=== PATIENT | female | born 1935 | race Caucasian/White ===

== ENCOUNTER 2019-05-09 20:17 | Emergency (ER) | payer OTHER ==
[~2019-05-09] VITALS: Ht 157.5 cm; Wt 46.8 kg
[2019-05-09 20:52] LABS: BASOPHILS # (AUTO) 0.1 K/uL (0.0-8.0); BASOPHILS % (AUTO) 0.9 % (0.0-2.0); EOSINOPHILS # (AUTO) 0.1 K/uL (0.0-0.7); EOSINOPHILS % (AUTO) 1.3 % (0.0-7.0); HEMATOCRIT 26.9 % (31.2-41.9); HEMOGLOBIN 8.8 g/dL (10.9-14.3); LYMPHOCYTES # (AUTO) 2.5 K/uL (20.0-40.0); LYMPHOCYTES % (AUTO) 28.5 % (20.5-51.5); MEAN CORPUSCULAR HEMOGLOBIN 21.6 uug (24.7-32.8); MEAN CORPUSCULAR HGB CONC 33 g/dL (32.3-35.6); MEAN CORPUSCULAR VOLUME 66.3 fL (75.5-95.3); MONOCYTES # (AUTO) 0.4 K/uL (2.0-10.0); MONOCYTES % (AUTO) 4.5 % (0.0-11.0); NEUTROPHILS # (AUTO) 5.7 K/uL (1.8-8.9); NEUTROPHILS % (AUTO) 64.8 % (38.5-71.5); PLATELET COUNT (AUTO) 562 K/uL (179-408); RED BLOOD CELL COUNT(AUTO) 4.06 MIL/uL (3.63-4.92); WHITE BLOOD COUNT (AUTO) 8.8 K/uL (3.8-11.8)
[2019-05-09 21:00] LABS: CARBON DIOXIDE 31 mmol/L (21-32); CHLORIDE 99 mmol/L (98-107); POTASSIUM 4.5 mmol/L (3.5-5.1)
[2019-05-09 21:01] LABS: CREATININE 0.6 mg/dL (0.6-1.3); GLUCOSE 112 mg/dL (74-106); UREA NITROGEN, BLOOD 12 mg/dL (7-20)
[2019-05-09 21:02] LABS: ALKALINE PHOSPHATASE 101 U/L (50-136); ASPARTATE AMINOTRANSFERASE 9 U/L (15-37); BILIRUBIN,DIRECT 0.1 mg/dL (0.0-0.2); BILIRUBIN,TOTAL 0.2 mg/dL (0.1-1.0)
[2019-05-09 21:03] LABS: ALANINE AMINOTRANSFERASE 11 U/L (14-59); TOTAL PROTEIN, SERUM 7.2 g/dL (6.4-8.2)
--- NOTE | 2019-05-09 21:38 | NUR ---
CALLED [facility] PER [facility]. RIVERS REQUEST. SPOKE WITH MOIRA ([facility]), PENDING CALL BACK FROM .
[2019-05-09 21:42] LABS: EOSINOPHILS % (MANUAL) 2 % (0-8); LYMPHOCYTES % (MANUAL) 31 % (20-40); MONOCYTES % (MANUAL) 7 % (2-10); NEUTROPHILS % (MANUAL) 60 % (42-75)
--- NOTE | 2019-05-09 22:04 | NUR ---
DR. RIVERS SPEAKING TO DR. GROSSMAN ([facility]) ON PHONE.
--- NOTE | 2019-05-09 22:20 | NUR ---
SPOKE WITH [facility] WHO IS ARRANGING TRANSPORT FOR PT TO GO BACK TO [facility]. ETA @ [phone].
--- NOTE | 2019-05-09 22:50 | NUR ---
ASSISTED PT TO WHEELCHAIR & TO RESTROOM WITH CAREGIVER. AFTER PT PLACED BACK TO ROOM, PT C/O PAIN TO RIGHT KNEE, NOTIFIED DR. RIVERS.
--- NOTE | 2019-05-09 23:39 | NUR ---
[facility] HERE TO TRANSPORT PT BACK TO [facility], CAREGIVER AT BEDSIDE. NO ACUTE DISTRESS NOTED. VITAL SIGNS STABLE. Patient discharged to home in stable conditon. Written and verbal after care instructions given. Patient verbalizes understanding of instructions.
[2019-05-09 23:41] VITALS: BP 133/66
== END 2019-05-09 23:41 | disposition home or self-care (01) ==
LOC: ER 20:21
DX: S09.90XA Unspecified injury of head, initial encounter (principal); D68.8 Other specified coagulation defects; D64.9 Anemia, unspecified; I48.91 Unspecified atrial fibrillation; F32.9 Major depressive disorder, single episode, unspecified; X58.XXXA Exposure to other specified factors, initial encounter; Y93.89 Activity, other specified; Y92.89 Other specified places as the place of occurrence of the external cause; Y99.8 Other external cause status
CPT/HCPCS: 36415; 70030-TC; 70450; 72125; 72170; 85025; 85730; A4663

== ENCOUNTER 2019-08-08 14:26 | Inpatient (IN) | payer OTHER ==
[~2019-08-08] VITALS: Ht 152.4 cm; Wt 45.8 kg
--- NOTE | 2019-08-08 14:26 | NUR ---
pt bib rescue from [facility] n/v. pt placed in room 3 immediately following hospital covid-19 guidelines. pt non-verbal, per paramedics, this is pt base line. yellowish bruise on the left side of the face, due to fall at the fascility per paramedics. pt ra sat 95%, improved to 99% with 2 litre via nc. pt breathing normally, no sign of resp distress. pt came with vomit bag, with scant amount of clear saliva.
[2019-08-08] MEDS ORDERED: PANTOPRAZOLE SODIUM 40 MG VIAL ONE (14:50)
[2019-08-08] MEDS ORDERED: ONDANSETRON 4 MG/2 ML VIAL ONE ×2 (14:50→18:59)
[2019-08-08] MEDS ORDERED: IV NORMAL SALINE 1000 ML BAG IV ONE (15:15)
[2019-08-08] MEDS ORDERED: PANTOPRAZOLE SODIUM 40 MG VIAL IV ONE (15:15)
[2019-08-08] MEDS ORDERED: ONDANSETRON 4 MG/2 ML VIAL IV ONE ×2 (15:15→19:00)
[2019-08-08 15:19] LABS: BASOPHILS % (AUTO) 0.4 % (0.0-2.0); EOSINOPHILS % (AUTO) 0.1 % (0.0-7.0); HEMOGLOBIN 9.4 g/dL (10.9-14.3); LYMPHOCYTES % (AUTO) 8.7 % (20.5-51.5); MEAN CORPUSCULAR HEMOGLOBIN 19.4 uug (24.7-32.8); MEAN CORPUSCULAR HGB CONC 30 g/dL (32.3-35.6); MEAN CORPUSCULAR VOLUME 64.2 fL (75.5-95.3); MONOCYTES # (AUTO) 0.6 K/uL (2.0-10.0); MONOCYTES % (AUTO) 4.9 % (0.0-11.0); NEUTROPHILS # (AUTO) 10.1 K/uL (1.8-8.9); NEUTROPHILS % (AUTO) 85.9 % (38.5-71.5); PLATELET COUNT (AUTO) 429 K/uL (179-408); RED BLOOD CELL COUNT(AUTO) 4.82 MIL/uL (3.63-4.92); WHITE BLOOD COUNT (AUTO) 11.8 K/uL (3.8-11.8)
[2019-08-08 15:28] LABS: CREATININE 0.7 mg/dL (0.6-1.3); POTASSIUM 3.8 mmol/L (3.5-5.1)
[2019-08-08 15:43] LABS: BILIRUBIN,DIRECT 0.1 mg/dL (0.0-0.2); BILIRUBIN,TOTAL 0.3 mg/dL (0.2-1.0); TOTAL PROTEIN, SERUM 7.7 g/dL (6.4-8.2)
[2019-08-08 15:45] LABS: THYROID STIMULATING HORMONE 2.398 mIU/mL (0.358-3.740)
[2019-08-08 15:49] LABS: LYMPHOCYTES % (MANUAL) 10 % (20-40); MONOCYTES % (MANUAL) 4 % (2-10); NEUTROPHILS % (MANUAL) 86 % (42-75)
[2019-08-08] MEDS ORDERED: PIPERACILLIN SODIUM/TAZOBACTAM 3.375 G in IV DEXTROSE 5% 50 ML IV ONE (16:30)
[2019-08-08] MEDS ORDERED: PIPERACILLIN/TAZOBACTAM/D5W 50 ML IV ONE (16:40)
--- NOTE | 2019-08-08 17:30 | NUR ---
called [facility].
--- NOTE | 2019-08-08 19:00 | NUR ---
chivo canada md notified.
[2019-08-08] MEDS ORDERED: ONDANSETRON 4 MG/2 ML VIAL IV PRN (20:30)
[2019-08-08] MEDS ORDERED: ACETAMINOPHEN 325 MG TABLET PO PRN (20:30)
[2019-08-08] MEDS ORDERED: ACETAMINOPHEN 650 MG SUPP.RECT RC PRN (20:30)
[2019-08-08] MEDS ORDERED: Z GUARD REMEDY PASTE 57 GM TUBE TOP PRN (20:30)
[2019-08-08] MEDS ORDERED: MAGNESIUM HYDROXIDE 30 ML LIQUID UDC PO PRN ×2 (20:30→20:45)
[2019-08-08] MEDS ORDERED: ZOLPIDEM 5 MG TABLET PO PRN (20:30)
[2019-08-08] MEDS ORDERED: FLEET ENEMA 133 ML BOTTLE RC PRN (20:45)
[2019-08-08] MEDS ORDERED: BISACODYL 10 MG SUPP.RECT RC PRN (20:45)
--- NOTE | 2019-08-08 20:45 | NUR ---
Pt. admitted to TELE, under care of [facility] Belongs List completed
--- NOTE | 2019-08-08 21:00 | NUR ---
Received patient from ER. Dx: PNA r/o COVID. Seen and examined by Yojana Pope NP. No signs of acute distress. A/Ox1-2, forgetful and answering mostly yes/no. However says she is feeling better, denies any nausea at this time. Denies any pain or SOB. Heplock on the left forearm is intact and patent. Patient oriented to unit and room. On contact/droplet iso. Noted with bruising on the left side of the face and 2 scabs around the left eyebrow s/p fall. Patient can't recall what happened. Safety measures initiated. Bed is low and locked, call light within reach. Will continue to monitor.
[2019-08-08] MEDS ORDERED: IV NS 1000 ML 1,000 ML IV ONE (21:15)
[2019-08-08 21:31] VITALS: BP 117/50
[2019-08-08] MEDS ORDERED: ALGINIC ACID PO SCH (21:45)
[2019-08-08] MEDS ORDERED: ALUMINUM HYDROXIDE PO SCH (21:45)
[2019-08-08] MEDS ORDERED: MAGNESIUM CARBONATE PO SCH (21:45)
--- NOTE | 2019-08-09 00:18 | NUR ---
Patient noted with temp of 100.2, cooling measures initiated. Will continue to monitor.
[2019-08-09 00:52] VITALS: BP 113/35
[2019-08-09 05:10] VITALS: BP 118/49
[2019-08-09] MEDS ORDERED: ALENDRONATE SODIUM 70 MG TABLET PO SCH ×2 (07:00→07:39)
[2019-08-09] MEDS ORDERED: AZITHROMYCIN IV 500 MG in IV DEXTROSE 5% 250 ML IV ONE (07:15)
[2019-08-09] MEDS ORDERED: ACETAMINOPHEN 325 MG TABLET PO PRN (07:15)
[2019-08-09] MEDS ORDERED: MAG HYDROX/AL HYDROX/SIMETH 30 ML LIQUID UDC PO PRN (07:30)
[2019-08-09] MEDS ORDERED: FLEET ENEMA 133 ML BOTTLE RC PRN (07:45)
[2019-08-09] MEDS ORDERED: AZITHROMYCIN IV 500 MG in IV DEXTROSE 5% 250 ML IV SCH (08:00)
[2019-08-09 08:52] LABS: CREATININE 0.7 mg/dL (0.6-1.3); POTASSIUM 4.3 mmol/L (3.5-5.1)
[2019-08-09] MEDS ORDERED: CALCIUM CARB/VITAMIN D 600-400 MG TABLET PO SCH (09:00)
[2019-08-09] MEDS ORDERED: MULTIVITAMINS,THERAPEUTIC TABLET PO SCH (09:00)
[2019-08-09] MEDS ORDERED: DABIGATRAN ETEXILATE MESYLATE 150 MG CAPSULE PO SCH ×2 (09:00→12:31)
[2019-08-09] MEDS ORDERED: CITALOPRAM 20 MG TABLET PO SCH (09:00)
[2019-08-09] MEDS ORDERED: Medication Not On Formulary EA (Calcium Carbonate/Vitamin D3 (Calcium + Vitamin D Tablet PO SCH (09:00)
[2019-08-09] MEDS ORDERED: ALBUTEROL SULFATE 8 GM HFA.AER.AD IH PRN ×2 (09:00→11:45)
[2019-08-09] MEDS ORDERED: DOCUSATE SODIUM 100 MG CAPSULE PO SCH (09:00)
[2019-08-09] MEDS ORDERED: PANTOPRAZOLE SODIUM 40 MG VIAL IV SCH (09:00)
[2019-08-09 09:02] LABS: BASOPHILS % (AUTO) 0.2 % (0.0-2.0); HEMATOCRIT 28.3 % (31.2-41.9); HEMOGLOBIN 8.7 g/dL (10.9-14.3); LYMPHOCYTES # (AUTO) 1.3 K/uL (20.0-40.0); LYMPHOCYTES % (AUTO) 12.3 % (20.5-51.5); MEAN CORPUSCULAR HEMOGLOBIN 19.8 uug (24.7-32.8); MEAN CORPUSCULAR HGB CONC 31 g/dL (32.3-35.6); MEAN CORPUSCULAR VOLUME 64.2 fL (75.5-95.3); MONOCYTES # (AUTO) 0.6 K/uL (2.0-10.0); MONOCYTES % (AUTO) 5.4 % (0.0-11.0); NEUTROPHILS # (AUTO) 8.9 K/uL (1.8-8.9); NEUTROPHILS % (AUTO) 82.1 % (38.5-71.5); PLATELET COUNT (AUTO) 345 K/uL (179-408); WHITE BLOOD COUNT (AUTO) 10.9 K/uL (3.8-11.8)
[2019-08-09 09:09] LABS: BILIRUBIN,TOTAL 0.3 mg/dL (0.2-1.0); MAGNESIUM 1.7 mg/dL (1.8-2.4); TOTAL PROTEIN, SERUM 6.9 g/dL (6.4-8.2)
[2019-08-09] MEDS ORDERED: CEFTRIAXONE 1 G in IV DEXTROSE 5% 50 ML IV SCH (11:00)
[2019-08-09 11:09] LABS: LYMPHOCYTES % (MANUAL) 11 % (20-40); MONOCYTES % (MANUAL) 3 % (2-10); NEUTROPHILS % (MANUAL) 86 % (42-75)
[2019-08-09 11:33] VITALS: BP 105/45
[2019-08-09] MEDS ORDERED: ACETAMINOPHEN 650 MG SUPP.RECT RC PRN (11:45)
[2019-08-09] MEDS ORDERED: Z GUARD REMEDY PASTE 57 GM TUBE TOP PRN (11:45)
[2019-08-09] MEDS ORDERED: ONDANSETRON 4 MG/2 ML VIAL IV PRN (11:45)
[2019-08-09] MEDS ORDERED: MAGNESIUM HYDROXIDE 30 ML LIQUID UDC PO PRN (11:45)
[2019-08-09] MEDS ORDERED: ZOLPIDEM 5 MG TABLET PO PRN (11:45)
[2019-08-09 15:55] VITALS: BP 94/39
--- NOTE | 2019-08-09 19:05 | NUR ---
RECEIVED DISCHARGE ORDER TO [facility] VIA AMBULNACE WITH 2 EMT. DISCHARGE ORDER GIVEN . NO SOB AND NO C/O PAIN NOTED, IV KEPT FOR FACILITY TO USE AND ID BAND REMOVED, KEPT CLEAN AND DRY AT ALL TIMES. WILL CONTINUE TO MONITOR.
[2019-08-10] MEDS ORDERED: AZITHROMYCIN IV 250 MG in IV DEXTROSE 5% 250 ML IV SCH (09:00)
[2019-08-10] MEDS ORDERED: PANTOPRAZOLE SODIUM 40 MG VIAL IV SCH (09:00)
== END 2019-08-09 19:00 | disposition short-term general hospital (02) | DRG 871 ==
LOC: ER 14:35 → TELE3 20:29
PROVIDERS: ADMIT Nurse Practitioner Acute Care; ATTEND Nurse Practitioner Acute Care
DX: A41.89 Other specified sepsis (principal); U07.1 COVID-19; G93.41 Metabolic encephalopathy; J12.89 Other viral pneumonia; E87.1 Hypo-osmolality and hyponatremia; I48.20 Chronic atrial fibrillation, unspecified; E87.2 Acidosis; E46 Unspecified protein-calorie malnutrition; Z68.1 Body mass index [BMI] 19.9 or less, adult; D50.9 Iron deficiency anemia, unspecified; I48.0 Paroxysmal atrial fibrillation; F03.90 Unspecified dementia, unspecified severity, without behavioral disturbance, psychotic disturbance, mood disturbance, and anxiety; M81.0 Age-related osteoporosis without current pathological fracture; Z79.82 Long term (current) use of aspirin; Z87.01 Personal history of pneumonia (recurrent); Z91.81 History of falling; E88.09 Other disorders of plasma-protein metabolism, not elsewhere classified; D47.3 Essential (hemorrhagic) thrombocythemia; K21.9 Gastro-esophageal reflux disease without esophagitis; K59.00 Constipation, unspecified; F32.9 Major depressive disorder, single episode, unspecified; K80.20 Calculus of gallbladder without cholecystitis without obstruction; I11.0 Hypertensive heart disease with heart failure; I50.9 Heart failure, unspecified; R00.1 Bradycardia, unspecified; S00.83XA Contusion of other part of head, initial encounter; X58.XXXA Exposure to other specified factors, initial encounter; Y93.9 Activity, unspecified; Y92.89 Other specified places as the place of occurrence of the external cause; M84.459S Pathological fracture, hip, unspecified, sequela; Z79.01 Long term (current) use of anticoagulants
CPT/HCPCS: 36415; 70030-TC; 70450; 71045; 71250; 72125; 83605; 83615; 83690; 83735; 84100; 84443; 85025; 85730; 87040; 93005; A4663; C9113; G0378; J0456; J0696; J2405; J2543; J3535; J7030; J7040; J7060; J8499

== ENCOUNTER 2021-01-26 09:37 | Emergency (ER) | payer OTHER ==
[~2021-01-26] VITALS: Ht 152.4 cm; Wt 59.0 kg
[~2021-01-26 09:37] MED LIST: ACET325T53 PO; ACET650S24 RC; ALBU8HFA4 IH; ALEN70TA3 PO; ASPI-618 PO; ATOR10TA PO; CALC-1210 PO; CALC-168 PO; CITA20TA19 PO; DABI150C PO; DOCU-141 PO; DULO30CA2 PO; FINA5TAB11 PO; MULT-594 PO; POLY17PO4 PO; SENN-18 PO
--- NOTE | 2021-01-26 09:39 | NUR ---
Paqtient brought in by RA 39 for decreased level of consciousness, at bedside at this time
--- NOTE | 2021-01-26 10:17 | NUR ---
Lab noted at bedside for blood draw
[2021-01-26] MEDS ORDERED: HYDR200T81 PO (10:21)
[2021-01-26] MEDS ORDERED: ACET-73 PO (10:21)
[2021-01-26] MEDS ORDERED: GLUC10007 MM (10:21)
[2021-01-26] MEDS ORDERED: CALC-15 PO (10:21)
[2021-01-26] MEDS ORDERED: ALBU8.5H8 INH (10:21)
[2021-01-26] MEDS ORDERED: CICL6.6S5 TP (10:21)
[2021-01-26] MEDS ORDERED: HYDR-3972 PO (10:21)
[2021-01-26] MEDS ORDERED: MAG355OR22 PO (10:21)
[2021-01-26] MEDS ORDERED: GAVISON (10:21)
[2021-01-26] MEDS ORDERED: PEG3350 POWDER (10:21)
--- NOTE | 2021-01-26 10:31 | NUR ---
20 gauge IV placed in left upper arm
--- NOTE | 2021-01-26 10:50 | NUR ---
adrianne collected via straight cath and sent to lab at this time
[2021-01-26 10:51] LABS: CARBON DIOXIDE 22 mmol/L (21-32); CHLORIDE 103 mmol/L (98-107); CREATININE 0.9 mg/dL (0.6-1.3); GLUCOSE 139 mg/dL (74-106); POTASSIUM 4.2 mmol/L (3.5-5.1); UREA NITROGEN, BLOOD 15 mg/dL (7-18)
[2021-01-26 10:56] LABS: *BILIRUBIN,URIN NEGATIVE (NEGATIVE); *CLARITY,URINE SLIGHTLY CLOUDY (CLEAR); *COLOR,URINE YELLOW (YELLOW); *KETONES,URINE NEGATIVE (NEGATIVE); *UROBILINOGEN,URINE 0.2 E.U./dl (NORMAL); LEUKOCYTE ESTERASE ,URINE 2+ (NEGATIVE); NITRITE, URINE POSITIVE (NEGATIVE); PH,URINE 7.5 (5.0-8.0); UGLUCOSE NEGATIVE (NEGATIVE)
[2021-01-26 10:57] LABS: ETHANOL < 3 MG/DL (0-0)
[2021-01-26 11:00] LABS: *BLOOD, URINE TRACE (NEGATIVE)
[2021-01-26 11:02] LABS: THYROID STIMULATING HORMONE 1.447 mIU/mL (0.358-3.740)
[2021-01-26 11:04] LABS: ALANINE AMINOTRANSFERASE 12 U/L (14-59); ALKALINE PHOSPHATASE 96 U/L (50-136); ASPARTATE AMINOTRANSFERASE 16 U/L (15-37); BILIRUBIN,DIRECT 0.1 mg/dL (0.0-0.2); BILIRUBIN,TOTAL 0.4 mg/dL (0.2-1.0); TOTAL PROTEIN, SERUM 7.7 g/dL (6.4-8.2)
[2021-01-26 11:05] LABS: ACETAMINOPHEN < 2.0 ug/mL (10-30)
[2021-01-26 11:09] LABS: *AMPHETAMINE, URINE NEGATIVE (NEGATIVE); *CANNABINOID, URINE NEGATIVE (NEGATIVE); *COCCAINE, URINE NEGATIVE (NEGATIVE); *OPIATE, URINE NEGATIVE (NEGATIVE); *PHENCYCLIDINE SCREEN,URINE NEGATIVE (NEGATIVE)
[2021-01-26] MEDS ORDERED: CEFTRIAXONE 1 G in IV DEXTROSE 5% 50 ML IV ONE (11:30)
[2021-01-26] MEDS ORDERED: CEFTRIAXONE /D5W 50ML IVPB **ER PYXIS IV ONE (11:51)
[2021-01-26 12:25] LABS: HEMATOCRIT 28.5 % (31.2-41.9); MEAN CORPUSCULAR HEMOGLOBIN 17.8 uug (24.7-32.8); MEAN CORPUSCULAR VOLUME 60.2 fL (75.5-95.3); PLATELET COUNT (AUTO) 408 K/uL (179-408)
[2021-01-26] MEDS ORDERED: IV NORMAL SALINE 500 ML BAG IV ONE (12:30)
--- NOTE | 2021-01-26 13:00 | NUR ---
Lalito FERNANDEZ spoke with MD Zayas for transfer
[2021-01-26 16:00] LABS: WBC,URINE 20-50 /HPF (0-3)
[2021-01-26 16:01] LABS: BACTERIA,URINE MANY /HPF (NONE SEEN)
--- NOTE | 2021-01-26 17:23 | NUR ---
Patient picked up by [facility] ambulance and will be transported to [facility], under the care of MD Armijo, report given to Roxy DE PAZ, [facility] transport, patient going to tele room 5224 for UTI and ALOC
[2021-01-26 19:13] LABS: BAND % (MANUAL) 1 % (0-10); LYMPHOCYTES % (MANUAL) 5 % (20-40); MONOCYTES % (MANUAL) 4 % (2-10); NEUTROPHILS % (MANUAL) 90 % (42-75)
== END 2021-01-26 17:30 | disposition short-term general hospital (02) ==
LOC: ER 09:37
DX: N39.0 Urinary tract infection, site not specified (principal); R41.82 Altered mental status, unspecified; F03.90 Unspecified dementia, unspecified severity, without behavioral disturbance, psychotic disturbance, mood disturbance, and anxiety; K21.9 Gastro-esophageal reflux disease without esophagitis; F32.9 Major depressive disorder, single episode, unspecified; Z79.899 Other long term (current) drug therapy; R09.89 Other specified symptoms and signs involving the circulatory and respiratory systems; Z20.822 Contact with and (suspected) exposure to COVID-19; E87.70 Fluid overload, unspecified; D64.9 Anemia, unspecified; I51.9 Heart disease, unspecified; I51.7 Cardiomegaly; I48.91 Unspecified atrial fibrillation; M81.0 Age-related osteoporosis without current pathological fracture; R77.8 Other specified abnormalities of plasma proteins
CPT/HCPCS: 36415; 70450; 71045; 80048; 80076; 80299; 80307; 80320; 81001; 82140; 83605 ×2; 83880; 84443; 84484; 85007; 85025; 87040 ×2; 87077; 87086; 87186; 87426; 93005; 96365; 99285; J0696; 70030-TC; A4663; G0480

== ENCOUNTER 2021-02-12 14:19 | Emergency (ER) | payer OTHER ==
[~2021-02-12] VITALS: Ht 152.4 cm; Wt 63.5 kg
[~2021-02-12 14:19] MED LIST changes: +ACET-73 PO; -ACET650S24 RC; +ALBU8.5H8 INH; -ALBU8HFA4 IH; -ASPI-618 PO; -ATOR10TA PO; -CALC-1210 PO; +CALC-15 PO; -CALC-168 PO; +CICL6.6S5 TP; -DULO30CA2 PO; -FINA5TAB11 PO; +GAVISON; +GLUC10007 MM; +HYDR-3972 PO; +HYDR200T81 PO; +MAG355OR22 PO; +PEG3350 POWDER; -POLY17PO4 PO
[2021-02-12] MEDS ORDERED: ADENOSINE 6 MG/2 ML SYR IV ONE (14:30)
--- NOTE | 2021-02-12 14:40 | NUR ---
PT EKG RYTHM CHANGED INTO NSR RATE OF 91 VERIFIED BY EKG. ER NOTIFIED.
[2021-02-12 14:56] LABS: CREATININE 1.1 mg/dL (0.6-1.3); POTASSIUM 3.8 mmol/L (3.5-5.1)
[2021-02-12 14:59] LABS: HEMATOCRIT 28.5 % (31.2-41.9); MEAN CORPUSCULAR HEMOGLOBIN 18.7 uug (24.7-32.8); MEAN CORPUSCULAR VOLUME 60.1 fL (75.5-95.3); PLATELET COUNT (AUTO) 510 K/uL (179-408)
[2021-02-12 15:02] LABS: BILIRUBIN,DIRECT 0.1 mg/dL (0.0-0.2); BILIRUBIN,TOTAL 0.3 mg/dL (0.2-1.0); TOTAL PROTEIN, SERUM 8.1 g/dL (6.4-8.2)
[2021-02-12 15:09] LABS: THYROID STIMULATING HORMONE 1.969 mIU/mL (0.358-3.740)
[2021-02-12 15:47] LABS: *BILIRUBIN,URIN NEGATIVE (NEGATIVE); *BLOOD, URINE 1+ (NEGATIVE); *CLARITY,URINE SLIGHTLY CLOUDY (CLEAR); *COLOR,URINE YELLOW (YELLOW); *KETONES,URINE NEGATIVE (NEGATIVE); *UROBILINOGEN,URINE 0.2 E.U./dl (NORMAL); LEUKOCYTE ESTERASE ,URINE 3+ (NEGATIVE); NITRITE, URINE POSITIVE (NEGATIVE); UGLUCOSE NEGATIVE (NEGATIVE)
[2021-02-12 16:00] LABS: BACTERIA,URINE MANY /HPF (NONE SEEN); WBC,URINE 80-100 /HPF (0-3)
--- NOTE | 2021-02-12 17:30 | NUR ---
Spoke with [facility], requested information provided.
[2021-02-12] MEDS ORDERED: IV NORMAL SALINE 1000 ML BAG IV ONE (17:45)
[2021-02-12] MEDS ORDERED: CEFTRIAXONE 1 G in IV DEXTROSE 5% 50 ML IV ONE (17:45)
[2021-02-12] MEDS ORDERED: CEFTRIAXONE /D5W 50ML IVPB **ER PYXIS IV ONE (17:58)
--- NOTE | 2021-02-12 19:34 | NUR ---
Patient is resting comfortably in bed with eyes closed. Breathing even and unlabored.
--- NOTE | 2021-02-12 20:48 | NUR ---
MOIRA FROM [facility] CALLED BACK RECEIVING DR: Kendra NEAL GOING TO ER REPORT #: [phone]
--- NOTE | 2021-02-12 22:29 | NUR ---
GAVE REPORT TO WAN FROM [facility].
--- NOTE | 2021-02-12 22:40 | NUR ---
SPOKE WITH DAUGHTER SHERLYN AND MADE AWARE THAT PT IS BEING TRANSFERED TO [facility], VERBALIZED UNDERSTANDING.
--- NOTE | 2021-02-12 23:15 | NUR ---
CHANGED PT TO A CLEAN AND DRY DIAPER, PROPER PERINEAL CARE RENDERED. DENIES ANY PAIN/DISCOMFORT.
--- NOTE | 2021-02-13 00:53 | NUR ---
[facility] AT BEDSIDE TO TRANSPORT PT TO [facility].
--- NOTE | 2021-02-13 00:57 | NUR ---
Patient Tranfers to outside Facility Physician: TREE Location: [facility]
== END 2021-02-13 01:02 | disposition short-term general hospital (02) ==
LOC: ER 14:19
DX: A41.9 Sepsis, unspecified organism (principal); N39.0 Urinary tract infection, site not specified; R77.8 Other specified abnormalities of plasma proteins; R00.0 Tachycardia, unspecified; Z20.822 Contact with and (suspected) exposure to COVID-19; G24.01 Drug induced subacute dyskinesia; F03.90 Unspecified dementia, unspecified severity, without behavioral disturbance, psychotic disturbance, mood disturbance, and anxiety; K21.9 Gastro-esophageal reflux disease without esophagitis; F32.A Depression, unspecified; Z79.899 Other long term (current) drug therapy; Z91.81 History of falling; I48.91 Unspecified atrial fibrillation; Z79.02 Long term (current) use of antithrombotics/antiplatelets
CPT/HCPCS: 36415; 70450; 71045; 80048; 80076; 81001; 83605; 83880; 84443; 84484; 85025; 85379; 86850; 86900; 86901; 87040 ×2; 87077; 87086; 87186; 87426; 93005 ×2; 96365; 99291; J0696; 70030-TC; A4663; J7030

== ENCOUNTER 2021-10-04 05:13 | Emergency (ER) | payer OTHER ==
[~2021-10-04] VITALS: Ht 165.1 cm; Wt 63.5 kg
--- NOTE | 2021-10-04 05:18 | NUR ---
Dr Islas at bedside, MSE in progress.
[2021-10-04] MEDS ORDERED: CLOT15CR36 TP (05:26)
[2021-10-04] MEDS ORDERED: FLUT16SP16 NS (05:26)
[2021-10-04] MEDS ORDERED: MIRT-93 PO (05:26)
--- NOTE | 2021-10-04 05:53 | NUR ---
X ray at bedside.
--- NOTE | 2021-10-04 06:21 | NUR ---
Called [facility] for transport back to [facility]. ETA 30 mins.
--- NOTE | 2021-10-04 07:09 | NUR ---
[facility] [address] here for transport back to [facility].
[2021-10-04 07:23] VITALS: BP 138/79
== END 2021-10-04 07:23 | disposition home or self-care (01) ==
LOC: ER 05:21
DX: S70.01XA Contusion of right hip, initial encounter (principal); W06.XXXA Fall from bed, initial encounter; Y92.092 Bedroom in other non-institutional residence as the place of occurrence of the external cause; F09 Unspecified mental disorder due to known physiological condition; F03.90 Unspecified dementia, unspecified severity, without behavioral disturbance, psychotic disturbance, mood disturbance, and anxiety; M81.0 Age-related osteoporosis without current pathological fracture
CPT/HCPCS: 73502; A4663